=== PATIENT | female | born 1955 | race Hispanic/Latino ===

== ENCOUNTER 2017-08-08 22:10 | Emergency (ER) | payer OTHER, SELFPAY ==
[2017-08-08] MEDS ORDERED: Lorazepam 2 MG/ML VIAL ONE (22:43)
[2017-08-08 22:45] LABS: PTT 28.6 SEC (22.9-36.1); Prothrombin Time 12.8 SEC (12.0-14.7)
[2017-08-08 22:54] LABS: ALT (SGPT) 32 U/L (8-55); AST (SGOT) 25 U/L (5-34); Albumin 4.2 g/dL (3.5-5.0); Alkaline Phosphatase 94 U/L (40-150); Anion Gap 20 mmol/L (10-20); BUN (Urea Nitrogen) 18 mg/dL (9.8-20.1); Bilirubin, Total 0.8 mg/dL (0.2-1.2); Calc. Creatinine Clearance 0 mL/min (70-130); Calcium 9.4 mg/dL (7.8-10.44); Carbon Dioxide 21 mmol/L (22-29); Chloride 102 mmol/L (98-107); Estimated GFR-MDRD 78; Globulin 3.5 g/dL (2.4-3.5); Glucose 164 mg/dL (70-105); Potassium 3.1 mmol/L (3.5-5.1); Protein, Total 7.7 g/dL (6.0-8.3); Sodium 140 mmol/L (136-145)
[2017-08-08 22:55] LABS: CKMB 1.3 ng/mL (0-6.6); Troponin I 0.037 ng/mL (< 0.028)
[2017-08-08 23:03] LABS: Red Blood Cell (RBC) Count 4.76 mill/uL (4.20-5.40); White Blood Cell (WBC) Count 9.2 thou/uL (4.8-10.8)
[2017-08-08 23:04] LABS: Hemoglobin 14.9 g/dL (12.0-16.0); Mean Corpuscular HGB CONC 35.5 g/dL (32.0-36.0); Mean Corpuscular Hemoglobin 31.4 pg (27.0-31.0); Mean Corpuscular Volume 88.4 fL (81.0-99.0); Mean Platelet Volume 7.4 fL (7.4-10.4); Platelet Count 238 thou/uL (130-400); RBC Distribution Width 11.3 % (11.5-14.5)
[2017-08-08 23:05] LABS: #Basophils 0.2 thou/uL (0.0-0.2); #Eosinphils 0.2 thou/uL (0.0-0.7); #Lymphocytes 4.3 thou/uL (1.20-3.40); #Monocytes 0.7 thou/uL (0.11-0.59); #Neutrophils 3.8 thou/uL (1.40-6.50); %Basophils 1.7 % (0.0-1.0); %Eosinophils 2.5 % (0.0-10.0); %Lymphocytes 46.9 % (21.0-51.0); %Monocytes 7.5 % (0.0-10.0); %Neutrophils 41.5 % (42.0-75.0); Manual Diff?? NO
[2017-08-08] MEDS ORDERED: Metoprolol Tartrate 5 MG/5 ML VIAL ONE (23:16)
[2017-08-08] MEDS ORDERED: Potassium Chloride 20 MEQ TAB ONE (23:16)
--- NOTE | 2017-08-08 23:43 | RAD ---
PORTABLE CHEST 08/08/17 An AP portable film at 2218 is compared with an 03/09/14 study. The heart is upper normal in size but no different than before. there is no vascular congestion, porfirio a, or pleural effusions. The lungs are clear. The trachea is midline. IMPRESSION: No acute thoracic finding. POS: HOME
== END 2017-08-08 23:42 | disposition short-term general hospital (02) ==
LOC: BURERS 22:10
DX: R07.2 Precordial pain (principal); E87.6 Hypokalemia; R79.89 Other specified abnormal findings of blood chemistry; E11.9 Type 2 diabetes mellitus without complications; E78.5 Hyperlipidemia, unspecified; I10 Essential (primary) hypertension; Z79.84 Long term (current) use of oral hypoglycemic drugs; Z79.899 Other long term (current) drug therapy
CPT/HCPCS: 71045; 80053; 82553; 84443; 84484; 85025; 85610; 85730; 93005; 94760; 96374; 96375; J2060

== ENCOUNTER 2018-09-06 23:20 | Emergency (ER) | payer OTHER, SELFPAY ==
[2018-09-06] MEDS ORDERED: Meclizine HCl 25 MG TAB ONE (23:47)
[2018-09-06] MEDS ORDERED: Ondansetron ODT 4 MG TAB ONE ×2 (23:47→23:54)
== END 2018-09-07 00:10 | disposition home or self-care (01) ==
LOC: BURERS 23:20
DX: R11.2 Nausea with vomiting, unspecified (principal); T40.4X5A Adverse effect of other synthetic narcotics, initial encounter; E11.9 Type 2 diabetes mellitus without complications; E78.5 Hyperlipidemia, unspecified; I10 Essential (primary) hypertension; Z79.899 Other long term (current) drug therapy; Z79.84 Long term (current) use of oral hypoglycemic drugs
CPT/HCPCS: 36416; 99283; Q0162